=== PATIENT | female | born 1980 | race Caucasian/White ===

== ENCOUNTER → 2018-06-18 | Outpatient (REF) | payer OTHER ==
[~2018-06-18] MED LIST: BUDE0.5A6 IH; CHOL100052 PO; CLO5 PO; CYCL10TA29 PO; DIA2 PO; FERR-59 PO; LOR5/325 PO; MEC25 PO; MECL-205 PO; MON10 PO; MONT10TA22 PO; NO RTN MEDS; NORG1TAB74 PO; OMEG-11 PO; PREN-85 PO; PRO25 PO; [UNRECOGNIZED DRUG - OTHER]; oxycodone PEG
== END ==
LOC: ZZSTITCHES 19:21
PROVIDERS: ATTEND Physician Assistant
DX: R53.81 Other malaise (principal); H81.399 Other peripheral vertigo, unspecified ear
CPT/HCPCS: 82310; 82374; 82435; 82565; 82947; 84132; 84295; 84443; 84520